=== PATIENT | male | born 1940 | race Caucasian/White ===

== ENCOUNTER 2017-10-20 20:33 | Inpatient (IN) | payer MEDICARE, BC ==
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
[2017-10-20] MEDS ORDERED: Albuterol Nebulizer 2.5mg/3mL HHN PRN (23:08)
[2017-10-20] MEDS ORDERED: Morphine Sulfate 2 mg/mL 1mL Syr IVP PRN (23:08)
[2017-10-20] MEDS ORDERED: Ipratropium Neb 0.5 mg/2.5 mL UD IH PRN (23:08)
[2017-10-20] MEDS ORDERED: HYDROmorphone 1 mg/mL 1mL Syr IVP STA (23:09)
[2017-10-20] MEDS ORDERED: HYDROmorphone 1 mg/mL 1mL Syr ONE (23:12)
[2017-10-20 23:49] LABS: % BASOPHILS 0.2 % (0.0-2.0); % EOSINOPHILS 3.6 % (0.0-5.0); % LYMPHOCYTES 14.4 % (20.0-50.0); % MONOCYTES 8.2 % (2.0-10.0); % NEUTROPHILS 73.6 % (40.0-80.0); EOSINOPHILE ABSOLUTE 0.4 Th/cmm (0.1-0.4); HEMATOCRIT 33.2 % (41.0-60); HEMOGLOBIN 10.7 gm/dL (12-16); LYMPHOCYTE ABSOLUTE 1.6 Th/cmm (1.5-3.0); MEAN CELL VOLUME 83.4 fl (80-99); MEAN CORPUSCULAR HGB CONC 32.3 pg (28.0-36.0); MEAN PLATELET VOLUME 6.8 fl; MONOCYTE ABSOLUTE 0.9 Th/cmm (0.3-1.0); PLATELET COUNT 578 Th/cmm (150-400); RED BLOOD COUNT 3.98 Mil/cmm (3.80-5.80); RED CELL DISTRIBUTION WIDTH 15.2 % (11.5-20.0); WHITE BLOOD COUNT 10.9 Th/cmm (4.8-10.8)
[2017-10-21 00:10] LABS: ALB/GLOB RATIO 0.8 (1.0-1.8); ALBUMIN 3.4 gm/dL (4.2-5.5); ALKALINE PHOSPHATASE 109 U/L (34-104); ANION GAP 14.2 (7.0-16.0); BILIRUBIN,TOTAL 0.2 mg/dL (0.3-1.0); BUN - UREA NITROGEN 34 mg/dL (7-25); CALCIUM SERUM 9.6 mg/dL (8.6-10.3); CARBON DIOXIDE 23.8 mEq/L (21.0-31.0); CHLORIDE 101 mEq/L (98-107); CREATININE - SERUM 1.4 mg/dL (0.7-1.3); GLUCOSE 192 mg/dL (70-105); SGOT 14 U/L (13-39); SGPT/ALT 30 U/L (7-52); SODIUM SERUM 134 mEq/L (136-145); TOTAL PROTEIN,SERUM 7.5 gm/dL (6.0-8.3)
[2017-10-21] MEDS ORDERED: oxyCODONE 5 mg IR Tab PO PRN (00:15)
[2017-10-21 00:51] VITALS: BP 120/66
[2017-10-21] MEDS ORDERED: Pneumococcal Vaccine 0.5 mL Vial IM ONE (01:11)
[2017-10-21] MEDS: Sodium Chloride 0.45% 1,000 ML IV SCH ×2 (01:38→22:50)
[2017-10-21] MEDS: INSULIN ASPART, RECOMBINANT 100 UNITS/ML SUBQ SCH ×4 (06:46→22:07)
--- NOTE | 2017-10-21 08:51 | Diagnostic Imaging Report ---
Exam: CT examination lumbar sacral spine. HISTORY: chronic pain. Total DLP equals 1055 CTDI equals 35.8 Findings: Multiple contiguous thin section of the lumbar sacral spine were obtained from lower thoracic spine to the sacrum. The study was performed without the administration of contrast material, no prior studies available for comparison. The study demonstrates extensive posterior spinal fusion from the level of T9 thoracic vertebra to S1 sacrum. There is no evidence of for fracture dislocation or abnormality of the hardware [place]. No prevertebral soft tissue swelling is noted. There is no evidence of spinal stenosis. Multiple levels laminectomy appreciated. Diffuse degenerative osteopenia changes are noted. Old mild superior plate compression fracture of T12 thoracic vertebra appreciated. IMPRESSION: Extensive posterior spinal fusion T9-S1 level. Extensive degenerative changes no evidence of fracture dislocation.
[2017-10-21] MEDS: Multivitamin w/ Minerals Tab PO SCH (10:30)
--- NOTE | 2017-10-21 12:45 | Diagnostic Imaging Report ---
Exam: CT examination abdomen pelvis. HISTORY: Left groin pain. Total DLP equals 675 CTDI equals 13.7. Findings: Multiple contiguous thin section of the abdomen pelvis obtained from lower thorax to pubic symphysis without the administration of oral or intravenous contrast material. No prior studies available comparison. Pleural thickening right base appreciated The study demonstrates normal aeration of lung parenchyma the bases The liver and spleen are intact. The gallbladder is distended. The visualized pancreas is normal. Pancreatic calcifications are noted INFLAMMATORY changes most likely The kidneys demonstrate no evidence of obstructive uropathy or nephrolithiasis. Inferior vena cava filter is noted. There is evidence for mild mesenteric inflammatory changes in the right lower quadrant with mesenteric induration area Large amount of fecal content in the right colon is noted. Extensive fusion of the distal thoracic and lumbar sacral spine appreciated with multiple levels a laminectomy. Diffuse vascular calcifications are noted. There is no evidence of diverticular disease of diverticulitis. Luna catheter is noted in the urinary bladder. IMPRESSION: 1. Distended gallbladder 2. Urinary bladder for catheter with the bladder wall thickening. 3. Inferior vena cava filter.
[2017-10-21] MEDS ORDERED: VTE Chemical Prophylaxis Screen/Admission MC PRN (14:54)
--- NOTE | 2017-10-21 14:54 | Internal Medicine Prog Note ---
Internal Medicine Subjective - Subjective Service Date: 10/21/17 ([id number] [facility]) Internal Medicine Objective - Results Result Diagrams: 10/20/17 23:33 10/20/17 23:33 Recent Labs: Laboratory Last Values WBC 10.9 Th/cmm (4.8-10.8) H 10/20/17 23:33 RBC 3.98 Mil/cmm (3.80-5.80) 10/20/17 23:33 Hgb 10.7 gm/dL (12-16) L 10/20/17 23: Hct 33.2 % (41.0-60) L 10/20/17 23:33 MCV 83.4 fl (80-99) 10/20/17 23: MCH 27.0 pg (27.0-31.0) 10/20/17 23: MCHC Differential 32.3 pg (28.0-36.0) 10/20/17 23: RDW 15.2 % (11.5-20.0) 10/20/17 23: Plt Count 578 Th/cmm (150-400) H 10/20/17 23:33 MPV 6.8 fl 10/20/17 23:33 Neutrophils % 73.6 % (40.0-80.0) 10/20/17 23: Lymphocytes % 14.4 % (20.0-50.0) L 10/20/17 23: Monocytes % 8.2 % (2.0-10.0) 10/20/17: Eosinophils % 3.6 % (0.0-5.0) 10/20/17 23: Basophils % 0.2 % (0.0-2.0) 10/20/17 23:33 Sodium 134 mEq/L (136-145) L 10/20/17 23:33 Potassium 5.0 mEq/L (3.5-5.1) 10/20/17 23: Chloride 101 mEq/L (98-107) 10/20/17 23: Carbon Dioxide 23.8 mEq/L (21.0-31.0) 10/20/17 23: Anion Gap 14.2 (7.0-16.0) 10/20/17 23: BUN 34 mg/dL (7-25) H 10/20/17 23:33 Creatinine 1.4 mg/dL (0.7-1.3) H 10/20/17 23:33 Est GFR ( Amer) TNP 10/20/17 23:33 Est GFR (Non-Af Amer) TNP 10/20/17 23:33 BUN/Creatinine Ratio 24.3 10/20/17 23:33 Glucose 192 mg/dL (70-105) H 10/20/17 23:33 POC Glucose 142 MG/DL (70 - 105) H 10/21/17 05:44 Calcium 9.6 mg/dL (8.6-10.3) 10/20/17 23:33 Total Bilirubin 0.2 mg/dL (0.3-1.0) L 10/20/17 23:33 AST 14 U/L (13-39) 10/20/17 23:33 ALT 30 U/L (7-52) 10/20/17 23:33 Alkaline Phosphatase 109 U/L (34-104) H 10/20/17 23:33 B-Natriuretic Peptide 25.0 pg/mL (5.0-100.0) 10/20/17 23:33 Total Protein 7.5 gm/dL (6.0-8.3) 10/20/17 23:33 Albumin 3.4 gm/dL (4.2-5.5) L 10/20/17 23:33 Globulin 4.1 gm/dL 10/20/17 23:33 Albumin/Globulin Ratio 0.8 (1.0-1.8) L 10/20/17 23:33 TSH 1.28 uIU/ml (0.34-5.60) 10/20/17 23:33 - Physical Exam Vitals and I&O: Vital Signs Temp 97.5 F 10/21/17 08:52 Pulse 74 10/21/17 10:44 Resp 19 10/21/17 08:52 BP 137/72 10/21/17 10:44 Pulse Ox 96 10/21/17 08:52 Intake & Output 10/20/17 10/21/17 10/21/17 18:59 06:59 18:59 Output Total 400 Balance -400 Weight (lbs) 207 lb 207 lb Output: Urine 400 Other: Stool Characteristics Soft Active Medications: Current Medications Acetaminophen (Tylenol) 650 mg PO Q4H PRN PRN Reason: Pain Or Fever above 101 Stop: 12/19/17 23:07 Albuterol Sulfate (Albuterol 2.5mg/3ml Neb Ud) 2.5 mg HHN Q2HRT PRN PRN Reason: Shortness of Breath or Wheeze Stop: 12/19/17 23:07 Alprazolam (Xanax) 1 mg PO Q6H PRN PRN Reason: Anxiety Stop: 12/20/17 00:08 Last Admin: 10/21/17 10:50 Dose: 1 mg Ascorbic Acid (Vitamin C) 2,000 mg PO DAILY [facility] Stop: 12/20/17 08:59 Last Admin: 10/21/17 10:05 Dose: 2,000 mg [place] Oil/[place] Balsam/Trypsin (Venelex) 1 appl TP DAILY [facility] Stop: 12/21/17 08:59 Gabapentin (Neurontin) 800 mg PO BID [facility] Stop: 12/20/17 08:59 Last Admin: 10/21/17 10:30 Dose: Not Given Heparin Sodium (Porcine) (Heparin) 5,000 units SUBQ Q12HR [facility] Stop: 12/20/17 08:59 Last Admin: 10/21/17 10:30 Dose: Not Given Sodium Chloride (Nacl 0.45%) 1,000 mls @ 50 mls/hr IV .Q20H [facility] Stop: 12/19/17 23:14 Last Admin: 10/21/17 01:38 Dose: 50 mls/hr Insulin Aspart (Novolog) 0 units SUBQ ACHS SHELLY PRN Reason: Protocol Stop: 12/20/17 07:29 Last Admin: 10/21/17 11:49 Dose: Not Given Ipratropium [place] (Atrovent Neb 0.5mg/2.5ml) 0.5 mg IH Q2HRT PRN PRN Reason: Shortness of Breath or Wheeze Stop: 12/19/17 23:07 Lisinopril (Zestril) 20 mg PO DAILY [facility] Stop: 12/20/17 08:59 Last Admin: 10/21/17 10:44 Dose: 20 mg Metformin HCl (Glucophage) 500 mg PO BID SHELLY Stop: 12/20/17 08:59 Last Admin: 10/21/17 10:30 Dose: 500 mg Methadone HCl (Methadone) 10 mg PO Q8HR PRN PRN Reason: Pain (Moderate) Stop: 12/19/17 23:06 Last Admin: 10/21/17 04:27 Dose: 10 mg Morphine Sulfate (Morphine) 2 mg IVP Q4H PRN PRN Reason: Severe Pain Stop: 12/19/17 23:07 Last Admin: 10/21/17 05:42 Dose: 2 mg Ondansetron HCl (Zofran) 4 mg IV Q8H PRN PRN Reason: Nausea / Vomiting Stop: 12/19/17 23:07 Zinc Sulfate (Zinc Sulfate) 220 mg PO DAILY SHELLY Stop: 12/20/17 08:59 Last Admin: 10/21/17 10:30 Dose: 220 mg Zolpidem Tartrate (Ambien) 10 mg PO HS PRN PRN Reason: Insomnia Stop: 12/19/17 23:07
[2017-10-21] MEDS ORDERED: Magnesium Hydroxide (MOM) 30 mL UDC PO PRN (15:04)
[2017-10-21] MEDS: HYDROmorphone 1 mg/mL 1mL Syr IVP PRN ×3 (15:25→20:02)
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
[2017-10-22] MEDS: HYDROmorphone 1 mg/mL 1mL Syr IVP PRN ×6 (00:12→20:13)
[2017-10-22 07:50] LABS: ANION GAP 11.2 (7.0-16.0); BUN - UREA NITROGEN 31 mg/dL (7-25); CALCIUM SERUM 9.1 mg/dL (8.6-10.3); CARBON DIOXIDE 24.5 mEq/L (21.0-31.0); CHLORIDE 100 mEq/L (98-107); CREATININE - SERUM 1.4 mg/dL (0.7-1.3); GLUCOSE 109 mg/dL (70-105); POTASSIUM SERUM 4.7 mEq/L (3.5-5.1); SODIUM SERUM 131 mEq/L (136-145)
[2017-10-22 07:53] LABS: % BASOPHILS 0.5 % (0.0-2.0); % EOSINOPHILS 2.8 % (0.0-5.0); % LYMPHOCYTES 15.9 % (20.0-50.0); % MONOCYTES 8.3 % (2.0-10.0); % NEUTROPHILS 72.5 % (40.0-80.0); BASOPHILE ABSOLUTE 0.1 Th/cumm (0-0.2); EOSINOPHILE ABSOLUTE 0.3 Th/cmm (0.1-0.4); HEMATOCRIT 30.5 % (41.0-60); HEMOGLOBIN 9.9 gm/dL (12-16); LYMPHOCYTE ABSOLUTE 1.7 Th/cmm (1.5-3.0); MEAN CELL VOLUME 83.7 fl (80-99); MEAN CORPUSCULAR HEMOGLOBIN 27.3 pg (27.0-31.0); MEAN CORPUSCULAR HGB CONC 32.6 pg (28.0-36.0); MEAN PLATELET VOLUME 6.7 fl; MONOCYTE ABSOLUTE 0.9 Th/cmm (0.3-1.0); NEUTROPHILE ABSOLUTE 7.9 Th/cmm (1.8-8.0); PLATELET COUNT 490 Th/cmm (150-400); RED BLOOD COUNT 3.64 Mil/cmm (3.80-5.80); RED CELL DISTRIBUTION WIDTH 14.9 % (11.5-20.0); WHITE BLOOD COUNT 10.9 Th/cmm (4.8-10.8)
[2017-10-22] MEDS: Multivitamin w/ Minerals Tab PO SCH (09:04)
[2017-10-22] MEDS: Venelex 60gm Tube TP SCH (09:04)
--- NOTE | 2017-10-22 11:27 | Consultation ---
DATE OF CONSULTATION: 10/22/2017 INPATIENT GASTROINTESTINAL CONSULTATION REFERRING PHYSICIAN: Dr. Monroe. REASON FOR CONSULTATION: Distended gallbladder. HISTORY OF PRESENT ILLNESS: This is a 77-year-old male who came to the hospital complaining of left groin pain. He denies having abdominal pain. Denies nausea, vomiting, diarrhea, GI bleeding. PAST MEDICAL HISTORY: Hypertension, diabetes, quadriplegic. PAST SURGICAL HISTORY: Laminectomy. FAMILY HISTORY: Noncontributory. SOCIAL HISTORY: Denies tobacco, alcohol or IV drug usage. ALLERGIES: OXYCODONE. CURRENT MEDICATIONS: Tylenol, Xanax, vitamin C, Dulcolax, Neurontin, heparin, Dilaudid, insulin, Zestril, Glucophage, methadone, morphine. REVIEW OF SYSTEMS: Ten point review of system was performed and the pertinent positives left groin pain. All systems were otherwise negative. PHYSICAL EXAMINATION: VITAL SIGNS: Temperature 98, breathing 20, pulse of 70, blood pressure 114/52, satting 96%. GENERAL: No apparent distress. Eyes are anicteric. Normal conjunctivae. HEENT: Normocephalic, atraumatic. Moist mucous membranes. NECK: Soft, supple. CHEST: Clear. No effort. CARDIOVASCULAR: Regular rate and rhythm. ABDOMEN: Soft, nontender, nondistended. SKIN: Warm, dry. EXTREMITIES: Reveal no cyanosis. PSYCHOLOGIC: Alert and oriented x 3. LABORATORY DATA: Show white count 10.9, hemoglobin 9.9, platelets of 490, total bilirubin 0.2, AST 14, ALT 30, alkaline phosphatase 109. IMPRESSION: A 77-year-old male with a distended gallbladder of unclear etiology, may have acalculous cholecystitis versus cholecystitis versus gallstone disease. LFTs are elevated for the alkaline phosphatase. He also has left groin pain, which is difficult to explain from the standpoint of distended gallbladder. He should have Urology evaluation at the discretion of the hospitalist primary team. PLAN: 1. Check an abdominal ultrasound. 2. Check a HIDA scan. 3. Check lipase level. 4. Repeat his LFTs. Thank you for allowing me to participate. Please call me if any questions. JOB# [id number]
[2017-10-22] MEDS: INSULIN ASPART, RECOMBINANT 100 UNITS/ML SUBQ SCH ×3 (13:35→20:10)
--- NOTE | 2017-10-22 16:34 | Internal Medicine Prog Note ---
Internal Medicine Subjective - Subjective Service Date: 10/22/17 Patient seen and examined:: with staff Patient is:: awake, verbal Per staff patient has:: tolerating meds Internal Medicine Objective - Results Result Diagrams: 10/22/17 07:10 10/22/17 07:10 Recent Labs: Laboratory Last Values WBC 10.9 Th/cmm (4.8-10.8) H 10/22/17 07:10 RBC 3.64 Mil/cmm (3.80-5.80) L 10/22/17 07:10 Hgb 9.9 gm/dL (12-16) L 10/22/17 07:10 Hct 30.5 % (41.0-60) L 10/22/17 07:10 MCV 83.7 fl (80-99) 10/22/17 07:10 MCH 27.3 pg (27.0-31.0) 10/22/17 07:10 MCHC Differential 32.6 pg (28.0-36.0) 10/22/17 07:10 RDW 14.9 % (11.5-20.0) 10/22/17 07:10 Plt Count 490 Th/cmm (150-400) H 10/22/17 07:10 MPV 6.7 fl 10/22/17 07:10 Neutrophils % 72.5 % (40.0-80.0) 10/22/17 07:10 Lymphocytes % 15.9 % (20.0-50.0) L 10/22/17 07:10 Monocytes % 8.3 % (2.0-10.0) 10/22/17 07:10 Eosinophils % 2.8 % (0.0-5.0) 10/22/17 07:10 Basophils % 0.5 % (0.0-2.0) 10/22/17 07:10 Sodium 131 mEq/L (136-145) L 10/22/17 07:10 Potassium 4.7 mEq/L (3.5-5.1) 10/22/17 07:10 Chloride 100 mEq/L (98-107) 10/22/17 07:10 Carbon Dioxide 24.5 mEq/L (21.0-31.0) 10/22/17 07:10 Anion Gap 11.2 (7.0-16.0) 10/22/17 07:10 BUN 31 mg/dL (7-25) H 10/22/17 07:10 Creatinine 1.4 mg/dL (0.7-1.3) H 10/22/17 07:10 Est GFR ( Amer) TNP 10/22/17 07:10 Est GFR (Non-Af Amer) TNP 10/22/17 07:10 BUN/Creatinine Ratio 22.1 10/22/17 07:10 Glucose 109 mg/dL (70-105) H 10/22/17 07:10 POC Glucose 142 MG/DL (70 - 105) H 10/21/17 05:44 Hemoglobin A1c % 8.0 % (4.0-6.0) H 10/20/17 23:33 Calcium 9.1 mg/dL (8.6-10.3) 10/22/17 07:10 Total Bilirubin 0.2 mg/dL (0.3-1.0) L 10/20/17 23:33 AST 14 U/L (13-39) 10/20/17 23:33 ALT 30 U/L (7-52) 10/20/17 23:33 Alkaline Phosphatase 109 U/L (34-104) H 10/20/17 23:33 B-Natriuretic Peptide 25.0 pg/mL (5.0-100.0) 10/20/17 23:33 Total Protein 7.5 gm/dL (6.0-8.3) 10/20/17 23:33 Albumin 3.4 gm/dL (4.2-5.5) L 10/20/17 23:33 Globulin 4.1 gm/dL 10/20/17 23:33 Albumin/Globulin Ratio 0.8 (1.0-1.8) L 10/20/17 23:33 Lipase 12 U/L (11-82) 10/22/17 07:10 TSH 1.28 uIU/ml (0.34-5.60) 10/20/17 23:33 - Physical Exam Vitals and I&O: Vital Signs Temp 98.1 F 10/22/17 12:00 Pulse 65 10/22/17 12:00 Resp 18 10/22/17 12:00 BP 138/68 10/22/17 12:00 Pulse Ox 95 10/22/17 12:00 Intake & Output 10/21/17 10/22/17 10/22/17 18:59 06:59 18:59 Intake Total 1560 Output Total 400 Balance 1160 Weight (lbs) 207 lb 217 lb 8 oz Intake: Intake, IV Amount 1000 Sodium Chloride 0.45% 1, 1000 000 ml @ 50 mls/hr IV . Q20H [facility] Rx#:[id number] Oral 560 Output: Urine 400 Other: Stool Characteristics Soft Active Medications: Current Medications Acetaminophen (Tylenol) 650 mg PO Q4H PRN PRN Reason: Pain Or Fever above 101 Stop: 12/19/17 23:07 Albuterol Sulfate (Albuterol 2.5mg/3ml Neb Ud) 2.5 mg HHN Q2HRT PRN PRN Reason: Shortness of Breath or Wheeze Stop: 12/19/17 23:07 Alprazolam (Xanax) 1 mg PO Q6H PRN PRN Reason: Anxiety Stop: 12/20/17 00:08 Last Admin: 10/21/17 10:50 Dose: 1 mg Ascorbic Acid (Vitamin C) 2,000 mg PO DAILY SHELLY Stop: 12/20/17 08:59 Last Admin: 10/22/17 09:03 Dose: 2,000 mg Bisacodyl (Dulcolax 10 Mg Supp) 10 mg RC DAILY PRN PRN Reason: Constipation Stop: 12/20/17 15:03 [place] Oil/[place] Balsam/Trypsin (Venelex) 1 appl TP DAILY [facility] Stop: 12/21/17 08:59 Last Admin: 10/22/17 09:04 Dose: 1 appl Gabapentin (Neurontin) 800 mg PO BID SHELLY Stop: 12/20/17 08:59 Last Admin: 10/22/17 09:05 Dose: Not Given Heparin Sodium (Porcine) (Heparin) 5,000 units SUBQ Q12HR SHELLY Stop: 12/20/17 08:59 Last Admin: 10/22/17 09:12 Dose: Not Given Hydromorphone HCl (Dilaudid) 1 mg IVP Q2HR PRN PRN Reason: Severe Pain Stop: 12/20/17 14:53 Last Admin: 10/22/17 16:31 Dose: 1 mg Sodium Chloride (Nacl 0.45%) 1,000 mls @ 50 mls/hr IV .Q20H [facility] Stop: 12/19/17 23:14 Last Admin: 10/21/17 22:50 Dose: 50 mls/hr Insulin Aspart (Novolog) 0 units SUBQ ACHS SHELLY PRN Reason: Protocol Stop: 12/20/17 07:29 Last Admin: 10/22/17 13:35 Dose: Not Given Ipratropium [place] (Atrovent Neb 0.5mg/2.5ml) 0.5 mg IH Q2HRT PRN PRN Reason: Shortness of Breath or Wheeze Stop: 12/19/17 23:07 Lisinopril (Zestril) 20 mg PO DAILY [facility] Stop: 12/20/17 08:59 Last Admin: 10/22/17 09:03 Dose: 20 mg Magnesium Hydroxide (Milk Of Magnesia) 30 ml PO HS PRN PRN Reason: Constipation Stop: 12/20/17 15:03 Metformin HCl (Glucophage) 500 mg PO BID [facility] Stop: 12/20/17 08:59 Last Admin: 10/22/17 16:30 Dose: 500 mg Methadone HCl (Methadone) 10 mg PO Q8HR PRN PRN Reason: Pain (Moderate) Stop: 12/19/17 23:06 Last Admin: 10/21/17 04:27 Dose: 10 mg Miscellaneous (Vte Chemical Prophylaxis Screen/ Admission) 1 ea [facility] PRN PRN PRN Reason: PROTOCOL Stop: 12/20/17 14:53 Morphine Sulfate (Morphine) 2 mg IVP Q4H PRN PRN Reason: MOD Pain Stop: 12/19/17 23:07 Last Admin: 10/21/17 05:42 Dose: 2 mg Ondansetron HCl (Zofran) 4 mg IV Q8H PRN PRN Reason: Nausea / Vomiting Stop: 12/19/17 23:07 Zinc Sulfate (Zinc Sulfate) 220 mg PO DAILY [facility] Stop: 12/20/17 08:59 Last Admin: 10/22/17 09:03 Dose: 220 mg Zolpidem Tartrate (Ambien) 10 mg PO HS PRN PRN Reason: Insomnia Stop: 12/19/17 23:07 General: alert HEENT: NC/AT, PERRLA Neck: Supple Lungs: CTAB Abdomen: distended Neurological: alert Internal Medicine Assmt/Plan - Assessment Assessment: ACUTE ABDOMINAL PAIN FECAL IMPACTION CHRONIC LEFT GROIN PAIN HX OF CERVICAL LAMINECTOMY AT C6 C7 AND FUSION L3-S1 HTN DM2 T12 QUADRIPLEGIC - Plan Plan: AWAIT FOR KUB FOLLOW UP LABS IN AM PAIN MGMT CONTINUE CURRENT ORDERS Nutritional Asmnt/Malnutr-PDOC - Dietary Evaluation Malnutrition Findings (Please click <Entered> for more info): Nutritional Asmnt/Malnutrition Start: 10/21/17 15: 58 Text: Status: Complete Freq: Document 10/21/17 15:58 [facility] (Rec[facility] 10/21/17 16:08 [facility] Nutritional Asmnt/Malnutrition Patient General Information Nutritional Screening High Risk Diagnosis paraplegia, acute exacerbation of chronic pain Pertinent Medical Hx/Surgical Hx HTN, DM, cervical laminectomy Subjective Information Pt seen lying in bed at time of visit, awake and talkative. Pt reported appetite adequate . Per note, consumed 100% of breakfast this morning. Current Diet Order/ Nutrition Support CCHO 60gm Pertinent Medications vitamin C, novolog, glucophage , nacl 0.45%, zinc Pertinent Labs 10/20 na 134, K 5.0, Cl 101, BUN 34, Cr 1.4, Glucose 192, POC 142-160 since adm, A1c 8.0 Nutritional Hx/Data Height 5 ft 11 in Height (Calculated Centimeters) 180.3 Current Weight (lbs) 207 lb Weight (Calculated Kilograms) 93.9 Weight (Calculated Grams) 36104.6 [place] Body Weight 172 % [place] Body Weight 120 Body Mass Index (BMI) 28.8 Weight Status Overweight GI Symptoms GI Symptoms None Difficult in: None Usual diet at home pt reported he has been eating carefully to keep BG in control, take protein supplements at home Skin Integrity/Comment: pressure ulceration multiple sites Estimated Nutritional Goals Calories/Kcals/Kg 27-32 based on IBW Kcals Calculated [id number] Protein g/k.2-1.4 Protein Calculated 94-109 Fluid: ml [id number] Nutritional Problem 1. Problem Problem increased nutrition related lab values Etiology increased metabolic demand for wound healing Signs/Symptoms: pressure ulceration to multiple sites Malnutrition Alert Protein-Calorie Malnutrition N/A Is there a minimum of two criteria No selected? Query Text:Check all the applicable criteria. A minimum of two criteria are recommended for diagnosis of either severe or non-severe malnutrition. Intervention/Recommendation Comments 1. Continue with current diet as ordered. Encouraged protein intake to help wound healing. Updated pt food preference with dietary worker. 2. Monitor PO intake, wt, labs and skin integrity 3. F/U as moderate in 3-5 days , 10/24-10/26 Expected Outcomes/Goals Expected Outcomes/Goals 1. PO intake to meet at least 75% of nutritional needs. 2. Wt stability, skin to remain intact, labs to improve
[2017-10-22] MEDS: Sodium Chloride 0.45% 1,000 ML IV SCH (20:20)
[2017-10-22 20:30] LABS: URINE BILIRUBIN NEGATIVE (NEGATIVE); URINE BLOOD NEGATIVE (NEGATIVE); URINE GLUCOSE (UA) NEGATIVE (NEGATIVE); URINE KETONE NEGATIVE (NEGATIVE); URINE LEUKOCYTE ESTERASE SMALL (NEGATIVE); URINE MICROSCOPIC INDICATED? YES; URINE NITRATE POSITIVE (NEGATIVE); URINE PH 8.5 (4.6 - 8.0); URINE PROTEIN 30 mg/dL (NEGATIVE); URINE SOURCE CLEAN C; URINE UROBILINOGEN 0.2 E.U./dL (0.2 - 1.0)
[2017-10-22 20:41] LABS: URINE CLARITY SLIGHTLY HAZY (CLEAR); URINE COLOR YELLOW
[2017-10-22 20:42] LABS: URINE BACTERIA FEW /hpf (NONE SEEN); URINE EPITHELIAL CELLS OCCASIONAL /lpf (FEW); URINE RBC 0-1 /hpf (0-5); URINE TRIPLE PHOSPHATE CRYSTAL FEW /hpf (FEW); URINE WBC 0-2 /hpf (0-5)
[2017-10-22 20:43] LABS: URINE AMORPHOUS SEDIMENT FEW PHOSPHATES (NONE SEEN)
[2017-10-23] MEDS: HYDROmorphone 1 mg/mL 1mL Syr IVP PRN ×5 (04:02→16:36)
[2017-10-23] MEDS: INSULIN ASPART, RECOMBINANT 100 UNITS/ML SUBQ SCH ×4 (07:01→20:58)
[2017-10-23 07:44] LABS: % BASOPHILS 0.3 % (0.0-2.0); % EOSINOPHILS 3.1 % (0.0-5.0); % LYMPHOCYTES 15.7 % (20.0-50.0); % MONOCYTES 7.3 % (2.0-10.0); % NEUTROPHILS 73.6 % (40.0-80.0); EOSINOPHILE ABSOLUTE 0.3 Th/cmm (0.1-0.4); HEMATOCRIT 30.6 % (41.0-60); LYMPHOCYTE ABSOLUTE 1.6 Th/cmm (1.5-3.0); MEAN CELL VOLUME 83.5 fl (80-99); MEAN CORPUSCULAR HEMOGLOBIN 27.4 pg (27.0-31.0); MEAN CORPUSCULAR HGB CONC 32.8 pg (28.0-36.0); MEAN PLATELET VOLUME 6.7 fl; MONOCYTE ABSOLUTE 0.8 Th/cmm (0.3-1.0); NEUTROPHILE ABSOLUTE 7.7 Th/cmm (1.8-8.0); PLATELET COUNT 507 Th/cmm (150-400); RED BLOOD COUNT 3.66 Mil/cmm (3.80-5.80); RED CELL DISTRIBUTION WIDTH 14.9 % (11.5-20.0); WHITE BLOOD COUNT 10.4 Th/cmm (4.8-10.8)
[2017-10-23 08:00] LABS: ANION GAP 11.9 (7.0-16.0); BUN - UREA NITROGEN 28 mg/dL (7-25); CALCIUM SERUM 9.1 mg/dL (8.6-10.3); CARBON DIOXIDE 25.1 mEq/L (21.0-31.0); CHLORIDE 100 mEq/L (98-107); CREATININE - SERUM 1.3 mg/dL (0.7-1.3); GLUCOSE 135 mg/dL (70-105); SODIUM SERUM 132 mEq/L (136-145)
[2017-10-23 08:01] LABS: ALB/GLOB RATIO 0.9 (1.0-1.8); ALBUMIN 3.1 gm/dL (4.2-5.5); BILIRUBIN,TOTAL 0.2 mg/dL (0.3-1.0); TOTAL PROTEIN,SERUM 6.7 gm/dL (6.0-8.3)
[2017-10-23 08:02] LABS: BILIRUBIN,DIRECT 0.09 mg/dL (0.0-0.2)
[2017-10-23] MEDS: Multivitamin w/ Minerals Tab PO SCH (08:11)
[2017-10-23] MEDS: Venelex 60gm Tube TP SCH (08:13)
--- NOTE | 2017-10-23 08:57 | GI Progress Note ---
Subjective - Review of Systems Subjective: NO EVENTS Objective - Results Result Diagrams: 10/23/17 07:00 10/23/17 07:00 Recent Labs: Laboratory Last Values WBC 10.4 Th/cmm (4.8-10.8) 10/23/17 07:00 RBC 3.66 Mil/cmm (3.80-5.80) L 10/23/17 07:00 Hgb 10.0 gm/dL (12-16) L 10/23/17 07:00 Hct 30.6 % (41.0-60) L 10/23/17 07:00 MCV 83.5 fl (80-99) 10/23/17 07:00 MCH 27.4 pg (27.0-31.0) 10/23/17 07:00 MCHC Differential 32.8 pg (28.0-36.0) 10/23/17 07:00 RDW 14.9 % (11.5-20.0) 10/23/17 07:00 Plt Count 507 Th/cmm (150-400) H 10/23/17 07:00 MPV 6.7 fl 10/23/17 07:00 Neutrophils % 73.6 % (40.0-80.0) 10/23/17 07:00 Lymphocytes % 15.7 % (20.0-50.0) L 10/23/17 07:00 Monocytes % 7.3 % (2.0-10.0) 10/23/17 07:00 Eosinophils % 3.1 % (0.0-5.0) 10/23/17 07:00 Basophils % 0.3 % (0.0-2.0) 10/23/17 07:00 Sodium 132 mEq/L (136-145) L 10/23/17 07:00 Potassium 5.0 mEq/L (3.5-5.1) 10/23/17 07:00 Chloride 100 mEq/L (98-107) 10/23/17 07:00 Carbon Dioxide 25.1 mEq/L (21.0-31.0) 10/23/17 07:00 Anion Gap 11.9 (7.0-16.0) 10/23/17 07:00 BUN 28 mg/dL (7-25) H 10/23/17 07:00 Creatinine 1.3 mg/dL (0.7-1.3) 10/23/17 07:00 Est GFR ( Amer) TNP 10/23/17 07:00 Est GFR (Non-Af Amer) TNP 10/23/17 07:00 BUN/Creatinine Ratio 21.5 10/23/17 07:00 Glucose 135 mg/dL (70-105) H 10/23/17 07:00 POC Glucose 142 MG/DL (70 - 105) H 10/21/17 05:44 Hemoglobin A1c % 8.0 % (4.0-6.0) H 10/20/17 23:33 Calcium 9.1 mg/dL (8.6-10.3) 10/23/17 07:00 Total Bilirubin 0.2 mg/dL (0.3-1.0) L 10/23/17 07:00 Direct Bilirubin 0.09 mg/dL (0.0-0.2) 10/23/17 07:00 AST 9 U/L (13-39) L 10/23/17 07:00 ALT 15 U/L (7-52) 10/23/17 07:00 Alkaline Phosphatase 82 U/L (34-104) 10/23/17 07:00 B-Natriuretic Peptide 25.0 pg/mL (5.0-100.0) 10/20/17 23:33 Total Protein 6.7 gm/dL (6.0-8.3) 10/23/17 07:00 Albumin 3.1 gm/dL (4.2-5.5) L 10/23/17 07:00 Globulin 3.6 gm/dL 10/23/17 07:00 Albumin/Globulin Ratio 0.9 (1.0-1.8) L 10/23/17 07:00 Lipase 12 U/L (11-82) 10/22/17 07:10 TSH 1.28 uIU/ml (0.34-5.60) 10/20/17 23:33 Urine Source CLEAN C 10/22/17 19:49 Urine Color YELLOW 10/22/17 19:49 Urine Clarity SLIGHTLY HAZY (CLEAR) 10/22/17 19:49 Urine pH 8.5 (4.6 - 8.0) 10/22/17 19:49 Ur Specific [place] 1.010 (1.005-1.030) 10/22/17 19:49 Urine Protein 30 mg/dL (NEGATIVE) H 10/22/17 19:49 Urine Glucose (UA) NEGATIVE mg/dL (NEGATIVE) 10/22/17 19:49 Urine Ketones NEGATIVE mg/dL (NEGATIVE) 10/22/17 19:49 Urine Blood NEGATIVE (NEGATIVE) 10/22/17 19:49 Urine Nitrate POSITIVE (NEGATIVE) H 10/22/17 19:49 Urine Bilirubin NEGATIVE (NEGATIVE) 10/22/17 19:49 Urine Urobilinogen 0.2 E.U./dL (0.2 - 1.0) 10/22/17 19:49 Ur Leukocyte Esterase SMALL (NEGATIVE) H 10/22/17 19:49 Urine RBC 0-1 /hpf (0-5) 10/22/17 19:49 Urine WBC 0-2 /hpf (0-5) 10/22/17 19:49 Ur Epithelial Cells OCCASIONAL /lpf (FEW) 10/22/17 19:49 Triple Phos Crystals FEW /hpf (FEW) 10/22/17 19:49 Amorphous Sediment FEW PHOSPHATES (NONE SEEN) 10/22/17 19:49 Urine Bacteria FEW /hpf (NONE SEEN) 10/22/17 19:49 - Physical Exam Vitals and I&O: Vital Signs Temp 97.4 F 10/23/17 04:00 Pulse 68 10/23/17 08:09 Resp 18 10/23/17 04:00 BP 134/53 10/23/17 08:09 Pulse Ox 98 10/23/17 04:00 Intake & Output 10/22/17 10/23/17 10/23/17 18:59 06:59 18:59 Intake Total 1600 500 Output Total 650 450 Balance 950 50 Weight (lbs) 98.656 kg 97.976 kg Intake: Intake, IV Amount 1000 Sodium Chloride 0.45% 1, 1000 000 ml @ 50 mls/hr IV . Q20H [facility] Rx#:[id number] Oral 600 500 Output: Urine 650 450 Other: # Bowel Movements 0 Active Medications: Current Medications Acetaminophen (Tylenol) 650 mg PO Q4H PRN PRN Reason: Pain Or Fever above 101 Stop: 12/19/17 23:07 Albuterol Sulfate (Albuterol 2.5mg/3ml Neb Ud) 2.5 mg HHN Q2HRT PRN PRN Reason: Shortness of Breath or Wheeze Stop: 12/19/17 23:07 Alprazolam (Xanax) 1 mg PO Q6H PRN PRN Reason: Anxiety Stop: 12/20/17 00:08 Last Admin: 10/21/17 10:50 Dose: 1 mg Ascorbic Acid (Vitamin C) 2,000 mg PO DAILY [facility] Stop: 12/20/17 08:59 Last Admin: 10/23/17 08:09 Dose: 2,000 mg Bisacodyl (Dulcolax 10 Mg Supp) 10 mg RC DAILY PRN PRN Reason: Constipation Stop: 12/20/17 15:03 [place] Oil/[place] Balsam/Trypsin (Venelex) 1 appl TP DAILY [facility] Stop: 12/21/17 08:59 Last Admin: 10/23/17 08:13 Dose: 1 appl Gabapentin (Neurontin) 800 mg PO BID [facility] Stop: 12/20/17 08:59 Last Admin: 10/23/17 08:12 Dose: Not Given Heparin Sodium (Porcine) (Heparin) 5,000 units SUBQ Q12HR [facility] Stop: 12/20/17 08:59 Last Admin: 10/23/17 08:12 Dose: Not Given Hydromorphone HCl (Dilaudid) 1 mg IVP Q2HR PRN PRN Reason: Severe Pain Stop: 12/20/17 14:53 Last Admin: 10/23/17 08:13 Dose: 1 mg Sodium Chloride (Nacl 0.45%) 1,000 mls @ 50 mls/hr IV .Q20H [facility] Stop: 12/19/17 23:14 Last Admin: 10/22/17 20:20 Dose: 50 mls/hr Insulin Aspart (Novolog) 0 units SUBQ ACHS [facility] PRN Reason: Protocol Stop: 12/20/17 07:29 Last Admin: 10/23/17 07:01 Dose: Not Given Ipratropium [place] (Atrovent Neb 0.5mg/2.5ml) 0.5 mg IH Q2HRT PRN PRN Reason: Shortness of Breath or Wheeze Stop: 12/19/17 23:07 Lisinopril (Zestril) 20 mg PO DAILY [facility] Stop: 12/20/17 08:59 Last Admin: 10/23/17 08:09 Dose: 20 mg Magnesium Hydroxide (Milk Of Magnesia) 30 ml PO HS PRN PRN Reason: Constipation Stop: 12/20/17 15:03 Last Admin: 10/23/17 08:35 Dose: 30 ml Metformin HCl (Glucophage) 500 mg PO BID [facility] Stop: 12/20/17 08:59 Last Admin: 10/23/17 08:11 Dose: 500 mg Methadone HCl (Methadone) 10 mg PO Q8HR PRN PRN Reason: Pain (Moderate) Stop: 12/19/17 23:06 Last Admin: 10/21/17 04:27 Dose: 10 mg Miscellaneous (Vte Chemical Prophylaxis Screen/ Admission) 1 ea [facility] PRN PRN PRN Reason: PROTOCOL Stop: 12/20/17 14:53 Morphine Sulfate (Morphine) 2 mg IVP Q4H PRN PRN Reason: MOD Pain Stop: 12/19/17 23:07 Last Admin: 10/21/17 05:42 Dose: 2 mg Ondansetron HCl (Zofran) 4 mg IV Q8H PRN PRN Reason: Nausea / Vomiting Stop: 12/19/17 23:07 Last Admin: 10/23/17 08:09 Dose: 4 mg Zinc Sulfate (Zinc Sulfate) 220 mg PO DAILY [facility] Stop: 12/20/17 08:59 Last Admin: 10/23/17 08:09 Dose: 220 mg Zolpidem Tartrate (Ambien) 10 mg PO HS PRN PRN Reason: Insomnia Stop: 12/19/17 23:07 Assessment/Plan - Assessment Assessment: 77 YO MALE WITH GROIN PAIN AND UTI WHICH WE WILL DEFER TO THE PRIMARY TEAM TO MANAGE HAS DISTENDED GALLBALDDER LFTS AND LIPASE ARE NORMAL 1.AWAIT JADE AND GOPI 2.CONT SUPP CARE
--- NOTE | 2017-10-23 09:56 | Diagnostic Imaging Report ---
Abdominal ultrasound HISTORY: Pain The liver exhibits a homogeneous parenchyma. No focal lesions. The gallbladder appears normal. No calculi are seen. No biliary dilatation. The pancreas cannot be seen due to bowel gas. The right kidney is normal in size. 1.4 cm sonolucent lesion is noted in the upper mid cortex consistent with a cyst. No hydronephrosis. The left kidney is normal in size. A 3.5 stemmata sonolucent lesions seen in the upper pole consistent with a cyst. No hydronephrosis. No other definite retroperitoneal or intra-abdominal abnormalities. There is a questionable minimal right pleural effusion. IMPRESSION: 1. Findings consistent with bilateral renal cysts 2. Questionable trace of a right pleural effusion.
--- NOTE | 2017-10-23 10:00 | Diagnostic Imaging Report ---
Bilateral lower extremity Doppler arterial ultrasound exam HISTORY: Pain, peripheral vascular disease Sonographic sector images were obtained through the arterial systems of both legs. Associated Doppler data was obtained. The exam of the right leg demonstrates triphasic waveforms within the common femoral artery as well as the proximal portion of the superficial femoral artery and popliteal artery. Biphasic waveforms are noted within the mid and distal superficial femoral artery, anterior tibial, posterior tibial, dorsalis pedis arteries. Slight decrease in velocity noted within the popliteal artery region. Increased velocity noted within the left posterior tibial artery. The right ankle-brachial index is normal (1.1). Sonographic images demonstrate mild diffuse atherosclerotic changes. The exam of the left leg demonstrates triphasic waveforms within the common femoral proximal portion of the left interstitial femoral artery. Biphasic waveforms noted within the mid and distal portion of the superficial femoral artery as well as within the left popliteal and anterior tibial arteries. Abnormal monophasic waveforms noted within the left posterior tibial and dorsalis pedis arteries. The ankle-brachial index is normal (1.0). Equals velocities noted within the left posterior tibial or dorsalis pedis arteries. Sonographic images demonstrate mild diffuse episodic changes. IMPRESSION: 1. Changes consistent mild diffuse bilateral atherosclerotic vascular disease. Tiny somewhat more pronounced within the left posterior tibial and dorsalis pedis artery regions. No cielo occlusion.
--- NOTE | 2017-10-23 13:18 | Internal Medicine Prog Note ---
Internal Medicine Subjective - Subjective Service Date: 10/23/17 (s/p noted to be leaking ) Patient seen and examined:: with staff Patient is:: awake, verbal Per staff patient has:: tolerating meds Internal Medicine Objective - Results Result Diagrams: 10/23/17 07:00 10/23/17 07:00 Recent Labs: Laboratory Last Values WBC 10.4 Th/cmm (4.8-10.8) 10/23/17 07:00 RBC 3.66 Mil/cmm (3.80-5.80) L 10/23/17 07:00 Hgb 10.0 gm/dL (12-16) L 10/23/17 07:00 Hct 30.6 % (41.0-60) L 10/23/17 07:00 MCV 83.5 fl (80-99) 10/23/17 07:00 MCH 27.4 pg (27.0-31.0) 10/23/17 07:00 MCHC Differential 32.8 pg (28.0-36.0) 10/23/17 07:00 RDW 14.9 % (11.5-20.0) 10/23/17 07:00 Plt Count 507 Th/cmm (150-400) H 10/23/17 07:00 MPV 6.7 fl 10/23/17 07:00 Neutrophils % 73.6 % (40.0-80.0) 10/23/17 07:00 Lymphocytes % 15.7 % (20.0-50.0) L 10/23/17 07:00 Monocytes % 7.3 % (2.0-10.0) 10/23/17 07:00 Eosinophils % 3.1 % (0.0-5.0) 10/23/17 07:00 Basophils % 0.3 % (0.0-2.0) 10/23/17 07:00 Sodium 132 mEq/L (136-145) L 10/23/17 07:00 Potassium 5.0 mEq/L (3.5-5.1) 10/23/17 07:00 Chloride 100 mEq/L (98-107) 10/23/17 07:00 Carbon Dioxide 25.1 mEq/L (21.0-31.0) 10/23/17 07:00 Anion Gap 11.9 (7.0-16.0) 10/23/17 07:00 BUN 28 mg/dL (7-25) H 10/23/17 07:00 Creatinine 1.3 mg/dL (0.7-1.3) 10/23/17 07:00 Est GFR ( Amer) TNP 10/23/17 07:00 Est GFR (Non-Af Amer) TNP 10/23/17 07:00 BUN/Creatinine Ratio 21.5 10/23/17 07:00 Glucose 135 mg/dL (70-105) H 10/23/17 07:00 POC Glucose 142 MG/DL (70 - 105) H 10/21/17 05:44 Hemoglobin A1c % 8.0 % (4.0-6.0) H 10/20/17 23:33 Calcium 9.1 mg/dL (8.6-10.3) 10/23/17 07:00 Total Bilirubin 0.2 mg/dL (0.3-1.0) L 10/23/17 07:00 Direct Bilirubin 0.09 mg/dL (0.0-0.2) 10/23/17 07:00 GGTP 31 IU/L (0-65) 10/22/17 07:00 AST 9 U/L (13-39) L 10/23/17 07:00 ALT 15 U/L (7-52) 10/23/17 07:00 Alkaline Phosphatase 82 U/L (34-104) 10/23/17 07:00 B-Natriuretic Peptide 25.0 pg/mL (5.0-100.0) 10/20/17 23:33 Total Protein 6.7 gm/dL (6.0-8.3) 10/23/17 07:00 Albumin 3.1 gm/dL (4.2-5.5) L 10/23/17 07:00 Globulin 3.6 gm/dL 10/23/17 07:00 Albumin/Globulin Ratio 0.9 (1.0-1.8) L 10/23/17 07:00 Lipase 12 U/L (11-82) 10/22/17 07:10 TSH 1.28 uIU/ml (0.34-5.60) 10/20/17 23:33 Urine Source CLEAN C 10/22/17 19:49 Urine Color YELLOW 10/22/17 19:49 Urine Clarity SLIGHTLY HAZY (CLEAR) 10/22/17 19:49 Urine pH 8.5 (4.6 - 8.0) 10/22/17 19:49 Ur Specific [place] 1.010 (1.005-1.030) 10/22/17 19:49 Urine Protein 30 mg/dL (NEGATIVE) H 10/22/17 19:49 Urine Glucose (UA) NEGATIVE mg/dL (NEGATIVE) 10/22/17 19:49 Urine Ketones NEGATIVE mg/dL (NEGATIVE) 10/22/17 19:49 Urine Blood NEGATIVE (NEGATIVE) 10/22/17 19:49 Urine Nitrate POSITIVE (NEGATIVE) H 10/22/17 19:49 Urine Bilirubin NEGATIVE (NEGATIVE) 10/22/17 19:49 Urine Urobilinogen 0.2 E.U./dL (0.2 - 1.0) 10/22/17 19:49 Ur Leukocyte Esterase SMALL (NEGATIVE) H 10/22/17 19:49 Urine RBC 0-1 /hpf (0-5) 10/22/17 19:49 Urine WBC 0-2 /hpf (0-5) 10/22/17 19:49 Ur Epithelial Cells OCCASIONAL /lpf (FEW) 10/22/17 19:49 Triple Phos Crystals FEW /hpf (FEW) 10/22/17 19:49 Amorphous Sediment FEW PHOSPHATES (NONE SEEN) 10/22/17 19:49 Urine Bacteria FEW /hpf (NONE SEEN) 10/22/17 19:49 - Physical Exam Vitals and I&O: Vital Signs Temp 97.0 F 10/23/17 08:00 Pulse 69 10/23/17 09:00 Resp 14 10/23/17 09:00 BP 134/53 10/23/17 08:09 Pulse Ox 95 10/23/17 09:00 Intake & Output 10/22/17 10/23/17 10/23/17 18:59 06:59 18:59 Intake Total 1600 500 Output Total 650 450 Balance 950 50 Weight (lbs) 217 lb 8 oz 216 lb Intake: Intake, IV Amount 1000 Sodium Chloride 0.45% 1, 1000 000 ml @ 50 mls/hr IV . Q20H [facility] Rx#:[id number] Oral 600 500 Output: Urine 650 450 Other: # Bowel Movements 0 Active Medications: Current Medications Acetaminophen (Tylenol) 650 mg PO Q4H PRN PRN Reason: Pain Or Fever above 101 Stop: 12/19/17 23:07 Albuterol Sulfate (Albuterol 2.5mg/3ml Neb Ud) 2.5 mg HHN Q2HRT PRN PRN Reason: Shortness of Breath or Wheeze Stop: 12/19/17 23:07 Alprazolam (Xanax) 1 mg PO Q6H PRN PRN Reason: Anxiety Stop: 12/20/17 00:08 Last Admin: 10/21/17 10:50 Dose: 1 mg Ascorbic Acid (Vitamin C) 2,000 mg PO DAILY [facility] Stop: 12/20/17 08:59 Last Admin: 10/23/17 08:09 Dose: 2,000 mg Bisacodyl (Dulcolax 10 Mg Supp) 10 mg RC DAILY PRN PRN Reason: Constipation Stop: 12/20/17 15:03 [place] Oil/[place] Balsam/Trypsin (Venelex) 1 appl TP DAILY [facility] Stop: 12/21/17 08:59 Last Admin: 10/23/17 08:13 Dose: 1 appl Gabapentin (Neurontin) 800 mg PO BID [facility] Stop: 12/20/17 08:59 Last Admin: 10/23/17 08:12 Dose: Not Given Heparin Sodium (Porcine) (Heparin) 5,000 units SUBQ Q12HR [facility] Stop: 12/20/17 08:59 Last Admin: 10/23/17 08:12 Dose: Not Given Hydromorphone HCl (Dilaudid) 1 mg IVP Q2HR PRN PRN Reason: Severe Pain Stop: 12/20/17 14:53 Last Admin: 10/23/17 12:53 Dose: 1 mg Sodium Chloride (Nacl 0.45%) 1,000 mls @ 50 mls/hr IV .Q20H [facility] Stop: 12/19/17 23:14 Last Admin: 10/22/17 20:20 Dose: 50 mls/hr Levofloxacin (Levaquin Pb) 500 mg in 100 mls @ 100 mls/hr IV Q24HR [facility] Stop: 12/22/17 13:14 Insulin Aspart (Novolog) 0 units SUBQ ACHS [facility] PRN Reason: Protocol Stop: 12/20/17 07:29 Last Admin: 10/23/17 12:17 Dose: Not Given Ipratropium [place] (Atrovent Neb 0.5mg/2.5ml) 0.5 mg IH Q2HRT PRN PRN Reason: Shortness of Breath or Wheeze Stop: 12/19/17 23:07 Lisinopril (Zestril) 20 mg PO DAILY [facility] Stop: 12/20/17 08:59 Last Admin: 10/23/17 08:09 Dose: 20 mg Magnesium Hydroxide (Milk Of Magnesia) 30 ml PO HS PRN PRN Reason: Constipation Stop: 12/20/17 15:03 Last Admin: 10/23/17 08:35 Dose: 30 ml Metformin HCl (Glucophage) 500 mg PO BID [facility] Stop: 12/20/17 08:59 Last Admin: 10/23/17 08:11 Dose: 500 mg Methadone HCl (Methadone) 10 mg PO Q8HR PRN PRN Reason: Pain (Moderate) Stop: 12/19/17 23:06 Last Admin: 10/21/17 04:27 Dose: 10 mg Miscellaneous (Vte Chemical Prophylaxis Screen/ Admission) 1 ea [facility] PRN PRN PRN Reason: PROTOCOL Stop: 12/20/17 14:53 Morphine Sulfate (Morphine) 2 mg IVP Q4H PRN PRN Reason: MOD Pain Stop: 12/19/17 23:07 Last Admin: 10/21/17 05:42 Dose: 2 mg Ondansetron HCl (Zofran) 4 mg IV Q8H PRN PRN Reason: Nausea / Vomiting Stop: 12/19/17 23:07 Last Admin: 10/23/17 08:09 Dose: 4 mg Zinc Sulfate (Zinc Sulfate) 220 mg PO DAILY [facility] Stop: 12/20/17 08:59 Last Admin: 10/23/17 08:09 Dose: 220 mg Zolpidem Tartrate (Ambien) 10 mg PO HS PRN PRN Reason: Insomnia Stop: 12/19/17 23:07 General: alert HEENT: NC/AT, PERRLA Neck: Supple Lungs: CTAB Abdomen: distended Neurological: alert Internal Medicine Assmt/Plan - Assessment Assessment: ACUTE UTI ACUTE ABDOMINAL PAIN FECAL IMPACTION CHRONIC LEFT GROIN PAIN HX OF CERVICAL LAMINECTOMY AT C6 C7 AND FUSION L3-S1 HTN DM2 T12 QUADRIPLEGIC - Plan Plan: hida scan in am urology consult to assess s/p cath FOLLOW UP LABS IN AM PAIN MGMT CONTINUE CURRENT ORDERS Nutritional Asmnt/Malnutr-PDOC - Dietary Evaluation Malnutrition Findings (Please click <Entered> for more info): Nutritional Asmnt/Malnutrition Start: 10/21/17 15: 58 Text: Status: Complete Freq: Document 10/21/17 15:58 NEVIN (Rec: 10/21/17 16:08 LIBERTY [email or web address]) Nutritional Asmnt/Malnutrition Patient General Information Nutritional Screening High Risk Diagnosis paraplegia, acute exacerbation of chronic pain Pertinent Medical Hx/Surgical Hx HTN, DM, cervical laminectomy Subjective Information Pt seen lying in bed at time of visit, awake and talkative. Pt reported appetite adequate . Per note, consumed 100% of breakfast this morning. Current Diet Order/ Nutrition Support CCHO 60gm Pertinent Medications vitamin C, novolog, glucophage , nacl 0.45%, zinc Pertinent Labs 10/20 na 134, K 5.0, Cl 101, BUN 34, Cr 1.4, Glucose 192, POC 142-160 since adm, A1c 8.0 Nutritional Hx/Data Height 5 ft 11 in Height (Calculated Centimeters) 180.3 Current Weight (lbs) 207 lb Weight (Calculated Kilograms) 93.9 Weight (Calculated Grams) 67071.6 [place] Body Weight 172 % [place] Body Weight 120 Body Mass Index (BMI) 28.8 Weight Status Overweight GI Symptoms GI Symptoms None Difficult in: None Usual diet at home pt reported he has been eating carefully to keep BG in control, take protein supplements at home Skin Integrity/Comment: pressure ulceration multiple sites Estimated Nutritional Goals Calories/Kcals/Kg 27-32 based on IBW Kcals Calculated [id number] Protein g/k.2-1.4 Protein Calculated 94-109 Fluid: ml [id number] Nutritional Problem 1. Problem Problem increased nutrition related lab values Etiology increased metabolic demand for wound healing Signs/Symptoms: pressure ulceration to multiple sites Malnutrition Alert Protein-Calorie Malnutrition N/A Is there a minimum of two criteria No selected? Query Text:Check all the applicable criteria. A minimum of two criteria are recommended for diagnosis of either severe or non-severe malnutrition. Intervention/Recommendation Comments 1. Continue with current diet as ordered. Encouraged protein intake to help wound healing. Updated pt food preference with intake clerk. 2. Monitor PO intake, wt, labs and skin integrity 3. F/U as moderate in 3-5 days , 10/24-10/26 Expected Outcomes/Goals Expected Outcomes/Goals 1. PO intake to meet at least 75% of nutritional needs. 2. Wt stability, skin to remain intact, labs to improve
[2017-10-23] MEDS: Levofloxacin 500mg/100mL 500 MG/100 ML BAG IV SCH (13:26)
[2017-10-23] MEDS: Sodium Chloride 0.45% 1,000 ML IV SCH (16:47)
[2017-10-23] MEDS: HYDROmorphone 2 mg/mL 1mL Vial IVP PRN (20:54)
[2017-10-24] MEDS: HYDROmorphone 2 mg/mL 1mL Vial IVP PRN ×3 (01:21→12:16)
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
[2017-10-24 06:20] LABS: BASOPHILE ABSOLUTE 0.1 Th/cumm (0-0.2); HEMATOCRIT 32.5 % (41.0-60); HEMOGLOBIN 10.8 gm/dL (12-16); LYMPHOCYTE ABSOLUTE 1.8 Th/cmm (1.5-3.0); MANUAL DIFF REQUIRED? YES; MEAN CELL VOLUME 82.9 fl (80-99); MEAN CORPUSCULAR HEMOGLOBIN 27.4 pg (27.0-31.0); MEAN CORPUSCULAR HGB CONC 33.1 pg (28.0-36.0); MEAN PLATELET VOLUME 7.3 fl; NEUTROPHILE ABSOLUTE 24.2 Th/cmm (1.8-8.0); PLATELET COUNT 642 Th/cmm (150-400); RED BLOOD COUNT 3.93 Mil/cmm (3.80-5.80); RED CELL DISTRIBUTION WIDTH 14.6 % (11.5-20.0)
[2017-10-24 06:34] LABS: ANION GAP 12.6 (7.0-16.0); BUN - UREA NITROGEN 27 mg/dL (7-25); CALCIUM SERUM 9.3 mg/dL (8.6-10.3); CARBON DIOXIDE 23.6 mEq/L (21.0-31.0); CHLORIDE 96 mEq/L (98-107); CREATININE - SERUM 1.4 mg/dL (0.7-1.3); GLUCOSE 137 mg/dL (70-105); POTASSIUM SERUM 5.2 mEq/L (3.5-5.1); SODIUM SERUM 127 mEq/L (136-145)
[2017-10-24] MEDS: INSULIN ASPART, RECOMBINANT 100 UNITS/ML SUBQ SCH ×2 (07:30→13:19)
[2017-10-24 08:05] LABS: WHITE BLOOD COUNT 27.1 Th/cmm (4.8-10.8)
[2017-10-24 08:13] LABS: BAND NEUTROPHILE 5 % (0-10); LYMPHOCYTE 5 % (20-50); MONOCYTE 5 % (2-10); NEUTROPHILS 85 % (40-80); TOTAL CELLS COUNTED 100
--- NOTE | 2017-10-24 11:13 | Diagnostic Imaging Report ---
Nuclear medicine HIDA scan HISTORY: Pain, assess for possible cholecystitis COMPARISON: Ultrasound abdomen on 10/22/[address] abdomen and pelvis on 10/20/2017 Technique/procedure: 5.3 mCi of technetium labeled Choletec was administered intravenously and multiple scintigraphic images were obtained for up to 2 hours. FINDINGS: Prompt hepatic uptake is demonstrated. Gallbladder uptake is seen at 20 minutes. Small bowel uptake was seen at 60 minutes. IMPRESSION: No evidence of cholecystitis.
--- NOTE | 2017-10-24 12:19 | GI Progress Note ---
Subjective - Review of Systems Subjective: NO EVENTS DENIES ABD PAIN Objective - Results Result Diagrams: 10/24/17 05:35 10/24/17 05:35 Recent Labs: Laboratory Last Values WBC 27.1 Th/cmm (4.8-10.8) H* D 10/24/17 05:35 RBC 3.93 Mil/cmm (3.80-5.80) 10/24/17 05:35 Hgb 10.8 gm/dL (12-16) L 10/24/17 05:35 Hct 32.5 % (41.0-60) L 10/24/17 05:35 MCV 82.9 fl (80-99) 10/24/17 05:35 MCH 27.4 pg (27.0-31.0) 10/24/17 05:35 MCHC Differential 33.1 pg (28.0-36.0) 10/24/17 05:35 RDW 14.6 % (11.5-20.0) 10/24/17 05:35 Plt Count 642 Th/cmm (150-400) H D 10/24/17 05:35 MPV 7.3 fl 10/24/17 05:35 Neutrophils % 73.6 % (40.0-80.0) 10/23/17 07:00 Band Neutrophils % 5 % (0-10) 10/24/17 05:35 Lymphocytes % 15.7 % (20.0-50.0) L 10/23/17 07:00 Monocytes % 7.3 % (2.0-10.0) 10/23/17 07:00 Eosinophils % 3.1 % (0.0-5.0) 10/23/17 07:00 Basophils % 0.3 % (0.0-2.0) 10/23/17 07:00 Neutrophils (Manual) 85 % (40-80) H 10/24/17 05:35 Lymphocytes 5 % (20-50) L 10/24/17 05:35 Monocytes 5 % (2-10) 10/24/17 05:35 Sodium 127 mEq/L (136-145) L 10/24/17 05:35 Potassium 5.2 mEq/L (3.5-5.1) H 10/24/17 05:35 Chloride 96 mEq/L (98-107) L 10/24/17 05:35 Carbon Dioxide 23.6 mEq/L (21.0-31.0) 10/24/17 05:35 Anion Gap 12.6 (7.0-16.0) 10/24/17 05:35 BUN 27 mg/dL (7-25) H 10/24/17 05:35 Creatinine 1.4 mg/dL (0.7-1.3) H 10/24/17 05:35 Est GFR ( Amer) TNP 10/24/17 05:35 Est GFR (Non-Af Amer) TNP 10/24/17 05:35 BUN/Creatinine Ratio 19.3 10/24/17 05:35 Glucose 137 mg/dL (70-105) H 10/24/17 05:35 POC Glucose 132 MG/DL (70 - 105) H 10/24/17 05:57 Hemoglobin A1c % 8.0 % (4.0-6.0) H 10/20/17 23:33 Calcium 9.3 mg/dL (8.6-10.3) 10/24/17 05:35 Total Bilirubin 0.2 mg/dL (0.3-1.0) L 10/23/17 07:00 Direct Bilirubin 0.09 mg/dL (0.0-0.2) 10/23/17 07:00 GGTP 31 IU/L (0-65) 10/22/17 07:00 AST 9 U/L (13-39) L 10/23/17 07:00 ALT 15 U/L (7-52) 10/23/17 07:00 Alkaline Phosphatase 82 U/L (34-104) 10/23/17 07:00 B-Natriuretic Peptide 25.0 pg/mL (5.0-100.0) 10/20/17 23:33 Total Protein 6.7 gm/dL (6.0-8.3) 10/23/17 07:00 Albumin 3.1 gm/dL (4.2-5.5) L 10/23/17 07:00 Globulin 3.6 gm/dL 10/23/17 07:00 Albumin/Globulin Ratio 0.9 (1.0-1.8) L 10/23/17 07:00 Lipase 12 U/L (11-82) 10/22/17 07:10 TSH 1.28 uIU/ml (0.34-5.60) 10/20/17 23:33 Urine Source CLEAN C 10/22/17 19:49 Urine Color YELLOW 10/22/17 19:49 Urine Clarity SLIGHTLY HAZY (CLEAR) 10/22/17 19:49 Urine pH 8.5 (4.6 - 8.0) 10/22/17 19:49 Ur Specific [place] 1.010 (1.005-1.030) 10/22/17 19:49 Urine Protein 30 mg/dL (NEGATIVE) H 10/22/17 19:49 Urine Glucose (UA) NEGATIVE mg/dL (NEGATIVE) 10/22/17 19:49 Urine Ketones NEGATIVE mg/dL (NEGATIVE) 10/22/17 19:49 Urine Blood NEGATIVE (NEGATIVE) 10/22/17 19:49 Urine Nitrate POSITIVE (NEGATIVE) H 10/22/17 19:49 Urine Bilirubin NEGATIVE (NEGATIVE) 10/22/17 19:49 Urine Urobilinogen 0.2 E.U./dL (0.2 - 1.0) 10/22/17 19:49 Ur Leukocyte Esterase SMALL (NEGATIVE) H 10/22/17 19:49 Urine RBC 0-1 /hpf (0-5) 10/22/17 19:49 Urine WBC 0-2 /hpf (0-5) 10/22/17 19:49 Ur Epithelial Cells OCCASIONAL /lpf (FEW) 10/22/17 19:49 Triple Phos Crystals FEW /hpf (FEW) 10/22/17 19:49 Amorphous Sediment FEW PHOSPHATES (NONE SEEN) 10/22/17 19:49 Urine Bacteria FEW /hpf (NONE SEEN) 10/22/17 19:49 - Physical Exam Vitals and I&O: Vital Signs Temp 98.1 F 10/24/17 12:00 Pulse 77 10/24/17 12:00 Resp 19 10/24/17 12:00 BP 149/77 10/24/17 12:00 Pulse Ox 98 10/24/17 12:00 Intake & Output 10/23/17 10/24/17 10/24/17 18:59 06:59 18:59 Intake Total 1600 240 Output Total 475 Balance 1125 240 Weight (lbs) 97.976 kg 97.976 kg Intake: Intake, IV Amount 1000 Sodium Chloride 0.45% 1, 1000 000 ml @ 50 mls/hr IV . Q20H [facility] Rx#:[id number] Oral 600 240 Output: Urine 475 Other: # Voids 4 # Bowel Movements 1 0 Active Medications: Current Medications Acetaminophen (Tylenol) 650 mg PO Q4H PRN PRN Reason: Pain Or Fever above 101 Stop: 12/19/17 23:07 Albuterol Sulfate (Albuterol 2.5mg/3ml Neb Ud) 2.5 mg HHN Q2HRT PRN PRN Reason: Shortness of Breath or Wheeze Stop: 12/19/17 23:07 Alprazolam (Xanax) 1 mg PO Q6H PRN PRN Reason: Anxiety Stop: 12/20/17 00:08 Last Admin: 10/24/17 08:59 Dose: 1 mg Ascorbic Acid (Vitamin C) 2,000 mg PO DAILY [facility] Stop: 12/20/17 08:59 Last Admin: 10/23/17 08:09 Dose: 2,000 mg Bisacodyl (Dulcolax 10 Mg Supp) 10 mg RC DAILY PRN PRN Reason: Constipation Stop: 12/20/17 15:03 [place] Oil/Tajik Balsam/Trypsin (Venelex) 1 appl TP DAILY [facility] Stop: 12/21/17 08:59 Last Admin: 10/23/17 08:13 Dose: 1 appl Gabapentin (Neurontin) 800 mg PO BID [facility] Stop: 12/20/17 08:59 Last Admin: 10/23/17 16:41 Dose: Not Given Heparin Sodium (Porcine) (Heparin) 5,000 units SUBQ Q12HR [facility] Stop: 12/20/17 08:59 Last Admin: 10/23/17 20:54 Dose: 5,000 units Hydromorphone HCl (Dilaudid) 1 mg IVP Q2HR PRN PRN Reason: Severe Pain Stop: 12/20/17 14:53 Last Admin: 10/24/17 12:16 Dose: 1 mg Sodium Chloride (Nacl 0.45%) 1,000 mls @ 50 mls/hr IV .Q20H [facility] Stop: 12/19/17 23:14 Last Admin: 10/23/17 16:47 Dose: 50 mls/hr Levofloxacin (Levaquin Pb) 500 mg in 100 mls @ 100 mls/hr IV Q24HR [facility] Stop: 12/22/17 13:14 Last Admin: 10/23/17 13:26 Dose: 100 mls/hr Insulin Aspart (Novolog) 0 units SUBQ ACHS SHELLY PRN Reason: Protocol Stop: 12/20/17 07:29 Last Admin: 10/23/17 20:58 Dose: Not Given Ipratropium [place] (Atrovent Neb 0.5mg/2.5ml) 0.5 mg IH Q2HRT PRN PRN Reason: Shortness of Breath or Wheeze Stop: 12/19/17 23:07 Lisinopril (Zestril) 20 mg PO DAILY [facility] Stop: 12/20/17 08:59 Last Admin: 10/23/17 08:09 Dose: 20 mg Magnesium Hydroxide (Milk Of Magnesia) 30 ml PO HS PRN PRN Reason: Constipation Stop: 12/20/17 15:03 Last Admin: 10/23/17 08:35 Dose: 30 ml Metformin HCl (Glucophage) 500 mg PO BID [facility] Stop: 12/20/17 08:59 Last Admin: 10/23/17 16:41 Dose: 500 mg Methadone HCl (Methadone) 10 mg PO Q8HR PRN PRN Reason: Pain (Moderate) Stop: 12/19/17 23:06 Last Admin: 10/21/17 04:27 Dose: 10 mg Miscellaneous (Vte Chemical Prophylaxis Screen/ Admission) 1 ea [facility] PRN PRN PRN Reason: PROTOCOL Stop: 12/20/17 14:53 Morphine Sulfate (Morphine) 2 mg IVP Q4H PRN PRN Reason: MOD Pain Stop: 12/19/17 23:07 Last Admin: 10/21/17 05:42 Dose: 2 mg Ondansetron HCl (Zofran) 4 mg IV Q8H PRN PRN Reason: Nausea / Vomiting Stop: 12/19/17 23:07 Last Admin: 10/24/17 08:59 Dose: 4 mg Zinc Sulfate (Zinc Sulfate) 220 mg PO DAILY [facility] Stop: 12/20/17 08:59 Last Admin: 10/23/17 08:09 Dose: 220 mg Zolpidem Tartrate (Ambien) 10 mg PO HS PRN PRN Reason: Insomnia Stop: 12/19/17 23:07 Assessment/Plan - Assessment Assessment: 77 YO MALE WITH GROIN PAIN AND UTI WHICH WE WILL DEFER TO THE PRIMARY TEAM TO MANAGE HAS DISTENDED GALLBALDDER LFTS AND LIPASE ARE NORMAL HIDA WAS NORMAL 1.CONSIDER YAYO IS SX'S 2.CONT SUPP CARE
[2017-10-24] MEDS: Multivitamin w/ Minerals Tab PO SCH (12:23)
[2017-10-24] MEDS: Levofloxacin 500mg/100mL 500 MG/100 ML BAG IV SCH (13:32)
[2017-10-24 13:56] LABS: BASOPHILE ABSOLUTE 0.1 Th/cumm (0-0.2); HEMATOCRIT 32.9 % (41.0-60); HEMOGLOBIN 10.7 gm/dL (12-16); LYMPHOCYTE ABSOLUTE 1.2 Th/cmm (1.5-3.0); MEAN CELL VOLUME 83.1 fl (80-99); MEAN CORPUSCULAR HEMOGLOBIN 26.9 pg (27.0-31.0); MEAN CORPUSCULAR HGB CONC 32.4 pg (28.0-36.0); MEAN PLATELET VOLUME 6.5 fl; MONOCYTE ABSOLUTE 0.5 Th/cmm (0.3-1.0); NEUTROPHILE ABSOLUTE 16.7 Th/cmm (1.8-8.0); PLATELET COUNT 600 Th/cmm (150-400); RED BLOOD COUNT 3.96 Mil/cmm (3.80-5.80); RED CELL DISTRIBUTION WIDTH 14.6 % (11.5-20.0)
[2017-10-24 14:38] LABS: WHITE BLOOD COUNT 18.5 Th/cmm (4.8-10.8)
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
[2017-10-24 15:58] LABS: BAND NEUTROPHILE 8 % (0-10); BASOPHIL 0 % (0-3); EOSINOPHIL 0 % (0-5); LYMPHOCYTE 5 % (20-50); MONOCYTE 3 % (2-10); NEUTROPHILS 82 % (40-80); PLATELET ESTIMATE INCREASED PLATELETS (NORMAL); PLATELET MORPHOLOGY NORMAL (NORMAL); TOTAL CELLS COUNTED 100
--- NOTE | 2017-10-25 11:51 | Progress Notes ---
DATE: 10/24/2017 UROLOGY PROGRESS NOTE The patient was discharged earlier today after I saw him in the morning. His white count was high and I had asked it to be repeated, but it was never called back again. The patient was getting in and out catheterization after we decided last night to do so, but then this morning, his caregiver was unable to take on the responsibility and therefore, the Luna had to be reinserted with plans to come in my office for training and then try to switch over to in and out catheterization. Before discharge, temperature 98.1, heart rate 77, blood pressure 149/77. Abdomen, soft, nondistended, and nontender. No masses or hernia. LABORATORY DATA: White count was up to 18.5 and there were 8 bands, but a repeat test was never done. His BUN was 27, creatinine was 1.4. IMPRESSION: 1. Neurogenic bladder with indwelling Luna and plans to try in and out catheterization once again if possible as an outpatient. 2. T12 paraplegia with constipation and neurogenic bladder. No major change. 3. Chronic left groin pain, apparently related to frequent UTIs, but not very well documented. 4. History of diabetes and hypertension. No major changes. JOB# [id number]
== END 2017-10-24 16:24 | disposition home or self-care (01) | DRG 391 ==
LOC: ER 20:33 → MSI 23:00
PROVIDERS: ADMIT Internal Medicine; ATTEND Internal Medicine
DX: R10.9 Unspecified abdominal pain (principal); G82.50 Quadriplegia, unspecified; N39.0 Urinary tract infection, site not specified; E11.9 Type 2 diabetes mellitus without complications; G82.20 Paraplegia, unspecified; K56.41 Fecal impaction; I10 Essential (primary) hypertension; N31.9 Neuromuscular dysfunction of bladder, unspecified; G89.29 Other chronic pain; K82.8 Other specified diseases of gallbladder; E66.9 Obesity, unspecified; Z88.6 Allergy status to analgesic agent; Z98.1 Arthrodesis status; Z68.30 Body mass index [BMI] 30.0-30.9, adult; V89.2XXS Person injured in unspecified motor-vehicle accident, traffic, sequela
CPT/HCPCS: 36415-UA; 72131-TC; 72192-TC; 76700-TC; 78226-TC; 80048-TC; 80053-TC; 80076-TC; 81001-TC; 82607-90; 82746-90; 82948-90; 82977-90; 83036-90; 83605; 83690-TC; 83880-TC; 84443-TC; 85007-TC; 85025-TC; 85027-TC; 87086-90; 93925-TC; 94760; A9537; J1170; J1644; J1815; J1956; J2270; J2405; Z7610